=== PATIENT | male | born 1985 | race African-American/Black ===

== ENCOUNTER 2020-03-25 22:16 | Emergency (ER) | payer SELFPAY ==
[2020-03-25 22:24] VITALS: BP 128/74
[2020-03-25] MEDS ORDERED: LIDOCAINE 1%/EPINEPHRINE INJ 20 ML VIAL INJ ONE (22:30)
--- NOTE | 2020-03-25 22:35 | ER Document Report ---
HPI - HPI Time Seen by Provider: 03/25/20 22:26 Pain Level: 2 Context: Patient is a 34-year-old male who presents to the emergency department who presents to the emergency department with a laceration to his right chin. Patient states that he was rollerskating and his partner skate hit him and he ended up falling to the ground and hitting his chin. Denies any loss of consciousness. He is not currently on any medications. Denies any blood thinner use. - ROS Systems Reviewed and Negative: Yes All other systems reviewed and negative - CONSTITUTIONAL Constitutional: DENIES: Fever, Chills - NEURO Neurology: DENIES: Weakness - GASTROINTESTINAL Gastrointestinal: DENIES: Patient vomiting - DERM Skin Color: Normal Skin Problems: Laceration - Left chin Past Medical History - Social History Smoking Status: Current Every Day Smoker Family History: Reviewed & Not Pertinent Vertical Provider Document - CONSTITUTIONAL Agree With Documented VS: Yes Exam Limitations: No Limitations General Appearance: No Apparent Distress - HEENT HEENT: Atraumatic, Normocephalic, PERRLA - NECK Neck: Normal Inspection - RESPIRATORY Respiratory: No Respiratory Distress - CARDIOVASCULAR Cardiovascular: Regular Rate, Regular Rhythm - MUSCULOSKELETAL/EXTREMETIES Musculoskeletal/Extremeties: FROM - NEURO Level of Consciousness: Awake, Alert, Appropriate Motor/Sensory: No Motor Deficit, No Sensory Deficit - DERM Integumentary: Warm, Dry, No Rash, Laceration - Right chin Course - Re-evaluation Re-evalutation: 03/25/20 23:13 Laceration was closed with 3 sutures. Patient tolerated procedure well. Patient will follow up with his primary care provider to have sutures removed. Follow-up precautions were given. Verbal discharge instructions were given to the patient. They verbalized understanding. They are stable for discharge. - Vital Signs Vital signs: Temp Pulse Resp BP Pulse Ox 98.6 F 93 16 128/74 H 97 03/25/20 22:21 03/25/20 22:21 03/25/20 22:21 03/25/20 22:21 03/25/20 22:21 Procedures - Laceration/Wound Repair Right chin Wound length (cm): 1 Wound's Depth, Shape: Superficial, Irregular Laceration pre-procedure: Sterile PPE donned, Shur-Clens applied Anesthetic type: 1% Lidocaine w/epi Volume Anesthetic (mLs): 3 Wound explored: Clean, No foreign body removed Irrigated w/ Saline (mLs): 100 Wound Debrided: Minimal Wound Repaired With: Sutures Suture Size/Type: 5:0, Prolene Number of Sutures: 3 Post-procedure NV exam normal: Yes Complications: No Adult Head Front/Back picture: 1 - 1 cm laceration Discharge - Discharge Clinical Impression: Chin laceration Qualifiers: Encounter type: initial encounter Qualified Code(s): S01.81XA - Laceration without foreign body of other part of head, initial encounter Condition: Stable Disposition: HOME, SELF-CARE Instructions: Soap Cleansing ([facility]) Additional Instructions: Please return to your primary doctor, the ED, or an urgent care in 5 days for suture removal. Return immediately if you develop spreading redness around the wound, pus from the wound, worsening pain, or a fever of >100.4. Keep the area clean and dry. Wash gently with soap and water twice daily and cover with antibiotic ointment. Referrals: MATT ADAME MD [NO LOCAL MD] - 03/30/20
== END 2020-03-25 23:29 | disposition home or self-care (01) ==
LOC: ER 22:16
DX: S01.81XA Laceration without foreign body of other part of head, initial encounter (principal); W18.01XA Striking against sports equipment with subsequent fall, initial encounter; Y93.51 Activity, roller skating (inline) and skateboarding; F17.200 Nicotine dependence, unspecified, uncomplicated
CPT/HCPCS: 99283; 12011; J3490

== ENCOUNTER 2020-03-30 11:30 | Emergency (ER) | payer SELFPAY ==
[2020-03-30 11:37] VITALS: BP 138/66
--- NOTE | 2020-03-30 12:18 | ER Document Report ---
ED Suture/Wound Recheck - General Chief Complaint: Suture Removal Stated Complaint: SUTURE REMOVAL/CHIN Time Seen by Provider: 03/30/20 12:09 Mode of Arrival: Ambulatory Information source: Patient Notes: 34-year-old male presents to ED for suture removal from his can suture removal from his chin he states he was at the [employer] 5 days ago when the injury occurred. Denies any pain any drainage any other problems he states he just needs the sutures removed. They are in his bhatt. Wound looks well approximated we will remove the sutures have patient clean the area and apply bacitracin frequently. - HPI Previous ED treatment: Laceration repair Quality of pain: No pain Severity: None Pain Level: Denies Context: Injury Symptoms since procedure: No complaints Exacerbated by: Denies Relieved by: Denies Past Medical History - General Information source: Patient - Social History Smoking Status: Current Every Day Smoker Family History: Reviewed & Not Pertinent - Past Medical History Cardiac Medical History: Reports: None Pulmonary Medical History: Reports: None EENT Medical History: Reports: None Neurological Medical History: Reports: None Endocrine Medical History: Reports: None Renal/ Medical History: Reports: None Malignancy Medical History: Reports None GI Medical History: Reports: None Musculoskeletal Medical History: Reports Hx Musculoskeletal Deformity, Reports Hx Musculoskeletal Trauma Skin Medical History: Reports None Psychiatric Medical History: Reports: None Traumatic Medical History: Reports: Hx Fractures - Cervical fracture with pins and screws Infectious Medical History: Reports: None Surgical Hx: Negative Past Surgical History: Reports: Hx Orthopedic Surgery - Clavicle fracture with pins and screws - Immunizations Immunizations up to date: Yes Hx Diphtheria, Pertussis, Tetanus Vaccination: Yes Review of Systems - Review of Systems Constitutional: No symptoms reported EENT: No symptoms reported Cardiovascular: No symptoms reported Respiratory: No symptoms reported Gastrointestinal: No symptoms reported Genitourinary: No symptoms reported Male Genitourinary: No symptoms reported Musculoskeletal: No symptoms reported Skin: Other - Chin laceration sutures intact Hematologic/Lymphatic: No symptoms reported Neurological/Psychological: No symptoms reported -: Yes All other systems reviewed and negative Physical Exam - Vital signs Vitals: Temp Pulse Resp BP Pulse Ox 98.5 F 77 18 138/66 H 100 03/30/20 11:36 03/30/20 11:36 03/30/20 11:36 03/30/20 11:36 03/30/20 11:36 Interpretation: Normal - General General appearance: Appears well, Alert - HEENT Head: Normocephalic, Atraumatic Eyes: Normal Pupils: PERRL - Respiratory Respiratory status: No respiratory distress Chest status: Nontender Breath sounds: Normal Chest palpation: Normal - Cardiovascular Rhythm: Regular Heart sounds: Normal auscultation Murmur: No - Abdominal Inspection: Normal Distension: No distension Bowel sounds: Normal Tenderness: Nontender Organomegaly: No organomegaly - Back Back: Normal, Nontender - Extremities General upper extremity: Normal inspection, Nontender, Normal color, Normal ROM, Normal temperature General lower extremity: Normal inspection, Nontender, Normal color, Normal ROM, Normal temperature, Normal weight bearing. No: Naheed's sign - Neurological Neuro grossly intact: Yes Cognition: Normal Orientation: AAOx4 [place] Coma Scale Eye Opening: Spontaneous [place] Coma Scale Verbal: Oriented [place] Coma Scale Motor: Obeys Commands [place] Coma Scale Total: 15 Speech: Normal Motor strength normal: LUE, RUE, LLE, RLE Sensory: Normal - Psychological Associated symptoms: Normal affect, Normal mood - Skin Skin Temperature: Warm Skin Moisture: Dry Skin Color: Normal Location of irregularity: Face - chin laceration well grandulated sutures removed Irregularity with: negative: Tenderness Course - Re-evaluation Re-evalutation: 03/30/20 12:15 Sutures will be removed from the. Area bacitracin applied and patient will be discharged home - Vital Signs Vital signs: Temp Pulse Resp BP Pulse Ox 98.5 F 77 18 138/66 H 100 03/30/20 11:36 03/30/20 11:36 03/30/20 11:36 03/30/20 11:36 03/30/20 11:36 Discharge - Discharge Clinical Impression: Visit for suture removal Condition: Stable Disposition: HOME, SELF-CARE Instructions: Suture Removal Additional Instructions: NON-SUTURED LACERATION: Your laceration did not require suturing. Some lacerations cannot be sutured because of increased infection risk, while others simply don't need stitches because they are shallow or very short. Your injury should be protected while it heals. Usually complete healing takes 10 to 14 days. Keep the dressing clean and dry, and change it every day. If you notice increasing pain, redness, swelling, drainage, or tender lumps in the armpit or groin above the injury, infection may be present. You should call the doctor at once. SOAP CLEANSING: Gently wash the wound daily using a mild soap (like Ivory, Phisoderm, Neutrogena). Use warm water, rubbing gently until all debris, ooze, and crusting have been washed from the wound. Allow to dry briefly (about 10 minutes) after cleaning. Repeat this cleansing at least three times a day for the first two days and then once or twice a day. ANTIBIOTIC OINTMENT PROTECTION: Your wounds are such that dressing them is not practical or optional. After cleansing, you should apply a thin coating of antibiotic ointment (Bacitracin, not Neosporin) to the wounds at least three times daily. This lessens infection risk, and may decrease the amount of scarring. Use a q-tip or dull butter knife, not your finger, to apply this ointment. Any debris or ooze which builds up in the ointment should be gently rubbed off with a sterile gauze pad. Harder crusting may need to be gently scrubbed off with a clean wash cloth with soap and warm water, perhaps applying a warm, wet wash cloth to the wound for ten minutes first. Development of redness, severe itching, or blistering may mean allergy to the ointment. See the doctor. Follow-Up Care Although no definite follow-up visit has been scheduled for you, you should return if there is unexpected worsening or a significant change in your symptoms.
== END 2020-03-30 12:56 | disposition home or self-care (01) ==
LOC: ER 11:30
DX: S01.81XD Laceration without foreign body of other part of head, subsequent encounter (principal); X58.XXXD Exposure to other specified factors, subsequent encounter; F17.200 Nicotine dependence, unspecified, uncomplicated
CPT/HCPCS: 99281